=== PATIENT | female | born 1955 | race Caucasian/White ===

== ENCOUNTER → 2016-11-28 | Day surgery (SDC) | payer MEDICAID ==
[~2016-11-28] MED LIST: AMBI10TA PO; DIAZ5 PO; GABA800T PO; GEMF600 PO; INVE9TAB PO; LACTATED RINGER'S 1000 ML INJ 1,000 ML ONE; LEVO100T5 PO; LEXA20TA PO; METF500T PO; ONABOTULINUMTOXINA INJ 100 UNITS/VIAL ONE; OS-CCHW2 CHEW; PALI234P IM; PROPOFOL 200 MG/20 ML AMP IV ONE; QUET300XR PO; QUET400XR PO; SODIUM CHLORIDE 0.9% INJ 10 ML ONE; VITA100021 SL; VITA200013 PO; VITA400C2 PO; ZANT300T PO
--- NOTE | 2016-11-28 09:31 | GIPROC ---
[facility] [address] [facility], [id number] EGD WITH DILATION PROCEDURE REPORT EXAM DATE: 11/28/2016 PATIENT NAME: Xiomara Fierro MR#: [id number] BIRTHDATE: 1955 ATTENDING: Mel Jason MD ORDER #: [id number] POWERTRAIN CALIBRATION ENGINEER: Kirstin Davis RN STATUS: outpatient INDICATIONS: The patient is a 61 yr old female here for an EGD with dilation due to dysphagia esophageal dysmotility PROCEDURE PERFORMED: EGD w/ biopsy EGD w/ directed submucosal injection(s), any substance EGD w/ dilation of esophagus via guidewire MEDICATIONS: None and Per Anesthesia. TOPICAL ANESTHETIC: none CONSENT: The patient understands the risks and benefits of the procedure and understands that these risks include, but are not limited to: sedation, allergic reaction, infection, perforation and/or bleeding. Alternative means of evaluation and treatment include, among others: physical exam, x-rays, and/or surgical intervention. The patient elects to proceed with this endoscopic procedure. medical equipment was checked for proper function. Hand hygiene and appropriate measures for infection prevention was taken. After the risks, benefits and alternatives of the procedure were thoroughly explained, Informed consent was verified, confirmed and timeout was successfully executed by the treatment team. The patient was anesthetized with topical anesthesia and the EC-[id number] ([id number]) endoscope was introduced through the mouth and advanced to the second portion of the duodenum. The instrument was slowly withdrawn as the mucosa was fully examined. Gastrtiis antrum-biopsy polyps fundus -biopsy irregular z line-biopsy BOTOX injection-100 units-25 units in each quadrant at ge junction. Dilation was performed at gastroesophageal junction. DILATOR: SIZE(S): RESISTANCE: HEME: APPEARANCE: Dilator: Savary over guidewire Size(s): 17 COMMENT: Retroflexed views revealed a hiatal hernia ADVERSE EVENTS: There were no complications. IMPRESSIONS: 1. Gastrtiis antrum-biopsy polyps fundus -biopsy irregular z line-biopsy BOTOX injection-100 units-25 units in each quadrant at ge junction 2. Retroflexed views revealed a hiatal hernia RECOMMENDATIONS: 1. Await biopsy results. Biopsy results will not be ready for 7-10 days. If you don't hear from us in two weeks, call our office for biopsy results. 2. Anti-reflux regimen 3. Start PPI REPEAT EXAM: EGD pending biopsy results Mel Jason MD eSigned: Mel Jason MD 11/28/2016 9:30 AM cc: Liz Mccarthy M.D. PATIENT NAME: Xiomara Fierro MR#: [id number]
== END | disposition home or self-care (01) ==
LOC: ESDC 07:03
PROVIDERS: ATTEND Internal Medicine Gastroenterology
DX: R13.10 Dysphagia, unspecified (principal); K29.70 Gastritis, unspecified, without bleeding; K31.7 Polyp of stomach and duodenum; K22.9 Disease of esophagus, unspecified
CPT/HCPCS: 00740; 43236; 43239; 43248; 88305; 88312; J0585; J3010; J7120